=== PATIENT | female | born 1985 ===

== ENCOUNTER 2021-06-08 09:00 | Outpatient (RCR) | payer OTHER, SELFPAY ==
[2021-06-08 12:14] VITALS: BMI 25.6
--- NOTE | 2021-06-08 12:37 | PC.ADMIT ---
Patient is a 36 year old female who was referred by [facility] where patient was admitted for treatment of severe ETOH use disorder. Patient has been drinking ETOH over the past 14 years and does not know how to function in life as a result. Patient reports isolating at home. Patient using ETOH to cope with her feelings, uses it to numb herself. Last drank ETOH April 26, 2021. Patient has a dx of Bipolar d/o and PTSD. Patient reports history of trauma. 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 Patient presents with depressed mood, blunted affect. Denied SI or thoughts to harm self. Patient gave verbal permission to email her a copy of her safety plan. Reports increased anxiety and decreased appetite. Patient reports she has been using marijuana daily. Patient aware not to use while attending PHP. Recommended patient attend substance use groups in addition to PHP for more support. 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 Patient also wants help with obtaining providers.
--- NOTE | 2021-06-08 12:51 | HO.PS.ADMBH ---
HPI Chief Complaint: Bipolar, Add, Alcohol Use D/o Sources of Information: patient interviewed and chart reviewed HPI Narrative: The patient is a 36-year-old female, single, with no children, living with his boyfriend and a roommate, with good social support referred to [facility] for continuation of treatment after medical detox and rehabilitation. The patient reported that she was medically detoxed from alcohol. She was started on Wellbutrin SR 100 mg p.o. b.i.d. and Topamax 50 mg p.o. b.i.d.. The patient reported that she was diagnosed with bipolar disorder at the age of 17 but she has never follow treatment. The patient complains of episodes of depression characterized by mostly lack of energy and episodes of hypomania characterized by racing thoughts and elated mood. Even though she has struggled with mood symptoms, she is highly functional. During the intake interview the patient reported that she also has ADHD she requested stimulants but at this moment, we would start treating her mood symptoms. She reported that she had been drinking alcohol denies daily basis since she was 24, she had a past history of delirium tremens, seizures and she was only in treatment this last episode. Past Psychiatric History: Never admitted into the hospital, she was diagnosed with bipolar disorder at the age of 17 treated with Trileptal but she never continue treatment due to over-sedation Medical Evaluation Reviewed: No [facility] Medical History (Updated 06/08/21 @ 13:56 by Juan Daniel Aquino) Fracture, mandible Family History: Denies Social History: The patient is the oldest of 2 children, her milestones were achieved at expected age and she was raised by her parents. She reported a good childhood. She attended school on she stated that she have learning disorder but she graduated. She is currently unemployed but she had worked on several [employer]. Substance History: Alcohol described in HPI. Denies other drugs but she admitted that she smokes marijuana Trauma History: Denies Diagnostics Vital Signs (24Hr): Body Mass Index 25.6 Meds/Allergies Allergies Allergies Allergy/AdvReac Type Severity Reaction Status Date / Time No Known Allergies Allergy Verified 06/08/21 12:16 Mental Status Exam Mental Status Exam Patient Appearance: Well Grooomed Patient Orientation: Person, Place, Time and Situation Level of Consciousness: Awake Patient Behavior: Appropriate Mood Description: Calm Affect Description: Appropriate and Constricted Patient Cognition Impaired: No Ability to Follow Directions: Fair Speech Pattern: Clear Memory Description: Intact Hallucinations: None Delusions: Not Present Thought Process: Goal Oriented and Linear Thought Content: positive for Intact Judgement: Fair Telehealth Telehealth Location of provider rendering services: practice address Location of patient: address on file Patient Identification confirmed using: Name, : Yes Telehealth method: video Patient verbally consented to treatment: Yes Patient verbally consented to billing insurance company: Yes Patient informed of any privacy concerns related to visit: No Time spent with patient (mins): 60 Assessment & Plan Assessment & Plan (1) Bipolar 2 disorder: Status: Acute Code(s): F31.81 - Bipolar II disorder (2) Alcohol abuse: Status: Acute Code(s): F10.10 - Alcohol abuse, uncomplicated Assessment and Plan: The patient is on adult female with a history of bipolar disorder and alcohol use disorder, referred to [facility] for continuation of treatment after a medical detox off alcohol wants the start of use of mood stabilizers and antidepressants. Plan 1. Continue Wellbutrin and Topamax. 2. Gather collateral information. Patient educated on: diagnosis, medication risk/benefits and substance abuse Informed Consent: understands Reason for continued partial hosp. stay Substantial Risk for: inability to function and med/psych decompensation Certification I certify that partial hospital treatment is medically necessary due to the symptoms and problems resulting from the patient's mental illness and the failure to treat the patient at the partial hospital level of care would likely result in the patient requiring inpatient psychiatric care which could not be prevented at a less intensive level of care.
--- NOTE | 2021-06-08 13:14 | PC.NURSE ---
Emailed patient requested information/education about Tobacco Cessation.
--- NOTE | 2021-06-09 10:09 | PC.NURSE ---
Patient did not show up to the program today. I spoke to Odilia who stated she did not realize the program was daily as she stated [facility] told her it was 3 days a week. Patient plans on attending the program tomorrow and understands that she is requited to be her 5 days a week.
--- NOTE | 2021-06-09 10:10 | PC.NURSE ---
Pt did not show up for treatment today, and did not call. 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 I had been unable to leave a message for pt as her VM was not yet set up. Guilelrmo said pt is sleeping, and he was not aware that she was scheduled for treatment today. He said he will ask her to call when she wakes up.
--- NOTE | 2021-06-09 15:09 | PC.NURSE ---
Case opened in treatment team.
--- NOTE | 2021-06-10 09:30 | PC.NURSE ---
Patient will be discharging AMA. She called this morning stating she will no longer be attending PHP as she will continue treatment with a private therapist. Feels the group setting is not a good fit for her. Staff aware.
== END 2021-06-13 07:36 | disposition home or self-care (01) ==
LOC: HO.PHPA 09:00
PROVIDERS: Visit Provider Psychiatry & Neurology Psychiatry
DX: F31.81 Bipolar II disorder (principal); F10.10 Alcohol abuse, uncomplicated; Z79.899 Other long term (current) drug therapy
CPT/HCPCS: 90791; 90853